=== PATIENT | male | born 1960 | race Caucasian/White ===

== ENCOUNTER 2023-08-21 10:30 | Emergency (ER) | payer OTHER ==
[~2023-08-21] VITALS: Ht 182.9 cm; Wt 131.5 kg
[2023-08-21 11:19] LABS: BASOPHILS # (AUTO) 0.03 K/uL (0.00-0.20); BASOPHILS % (AUTO) 0.6 % (0.0-5.0); EOSINOPHILS # (AUTO) 0.24 K/uL (0.00-0.70); EOSINOPHILS % (AUTO) 4.5 % (0.0-8.0); HEMATOCRIT 44.8 % (42-54); IMMATURE GRANULOCYTE ABSOLUTE 0.02 K/uL (0-1); LYMPHOCYTES # (AUTO) 0.8 K/uL (1.0-4.8); LYMPHOCYTES % (AUTO) 14.2 % (21.0-51.0); MEAN CORPUSCULAR HEMOGLOBIN 31.6 pg (27.0-33.0); MEAN CORPUSCULAR HGB CONC 33.3 g/dL (32.0-36.0); MEAN CORPUSCULAR VOLUME 95.1 fL (79-99); MONOCYTES # (AUTO) 0.6 K/uL (0.1-1.0); NEUTROPHILS # (AUTO) 3.7 K/uL (1.8-7.7); NEUTROPHILS % (AUTO) 69.3 % (40.0-77.0); PLATELET COUNT (AUTO) 268 K/uL (130-400); RED BLOOD CELL COUNT(AUTO) 4.71 MIL/uL (4.50-6.20); RED CELL DISTRIBUTION WIDTH 13.8 % (11.0-15.5); WHITE BLOOD COUNT (AUTO) 5.4 K/uL (4.8-10.8)
[2023-08-21 11:28] LABS: CREATININE 0.8 mg/dL (0.5-1.5); POTASSIUM 4.3 mmol/L (3.5-5.1)
[2023-08-21] MEDS ORDERED: ACETAMINOPHEN 500 MG TABLET PO ONE (11:30)
[2023-08-21 11:33] LABS: ALBUMIN 3.2 g/dL (3.5-5.0); BILIRUBIN,TOTAL 0.4 mg/dL (0.2-1.0); TOTAL PROTEIN, SERUM 6.5 g/dL (6.0-8.3)
[2023-08-21 13:08] VITALS: BP 164/93; PULSE 70; RESP 19; O2SAT 98
== END 2023-08-21 13:33 | disposition home or self-care (01) ==
LOC: EDH 10:30
DX: E66.01 Morbid (severe) obesity due to excess calories (principal); R53.1 Weakness; I10 Essential (primary) hypertension; Z68.39 Body mass index [BMI] 39.0-39.9, adult
CPT/HCPCS: 36415; 71045; 73030; 80053; 82550; 83880; 85025

== ENCOUNTER 2023-08-23 13:03 | Inpatient (IN) | payer OTHER ==
[~2023-08-23] VITALS: Ht 188 cm; Wt 128.4 kg
[2023-08-23] MEDS: GUAIFENESIN-DM 200/20 MG 10 ML PO ONE (19:31)
[2023-08-23 19:39] LABS: BASOPHILS # (AUTO) 0.04 K/uL (0.00-0.20); BASOPHILS % (AUTO) 0.5 % (0.0-5.0); EOSINOPHILS # (AUTO) 0.22 K/uL (0.00-0.70); EOSINOPHILS % (AUTO) 2.7 % (0.0-8.0); HEMATOCRIT 49.5 % (42-54); IMMATURE GRANULOCYTE ABSOLUTE 0.02 K/uL (0-1); LYMPHOCYTES # (AUTO) 0.8 K/uL (1.0-4.8); LYMPHOCYTES % (AUTO) 10.2 % (21.0-51.0); MEAN CORPUSCULAR HEMOGLOBIN 31.6 pg (27.0-33.0); MEAN CORPUSCULAR HGB CONC 32.9 g/dL (32.0-36.0); MEAN CORPUSCULAR VOLUME 95.9 fL (79-99); MONOCYTES # (AUTO) 0.7 K/uL (0.1-1.0); MONOCYTES % (AUTO) 8.6 % (3.0-13.0); NEUTROPHILS # (AUTO) 6.3 K/uL (1.8-7.7); NEUTROPHILS % (AUTO) 77.8 % (40.0-77.0); PLATELET COUNT (AUTO) 290 K/uL (130-400); RED BLOOD CELL COUNT(AUTO) 5.16 MIL/uL (4.50-6.20); WHITE BLOOD COUNT (AUTO) 8.1 K/uL (4.8-10.8)
[2023-08-23 20:39] LABS: INFLUENZA TYPE A Negative For Type A (NEGATIVE); INFLUENZA TYPE B Negative For Type B (NEGATIVE); SARS-CoV-2, RNA, NAAT NEGATIVE SARS CoV-2 (NEGATIVE)
[2023-08-23 20:47] LABS: CREATININE 0.8 mg/dL (0.5-1.5); POTASSIUM 4.6 mmol/L (3.5-5.1)
[2023-08-23 20:52] LABS: ALBUMIN 3.4 g/dL (3.5-5.0); BILIRUBIN,TOTAL 0.6 mg/dL (0.2-1.0)
[2023-08-23] MEDS: ACETAMINOPHEN 650 MG/20.3 ML UDCUP PO ONE (21:49)
[2023-08-23] MEDS ORDERED: IOHEXOL-350 50ML VIAL IV ONE (22:03)
[2023-08-23] MEDS ORDERED: IOHEXOL 350 MG/ML 100ML INFUS..BTL IV ONE (22:03)
[2023-08-24] MEDS ORDERED: GUAIFENESIN-DM 200/20 MG 10 ML PO PRN (02:00)
[2023-08-24] MEDS ORDERED: ONDANSETRON 4MG INJ IV PRN (02:00)
[2023-08-24] MEDS ORDERED: ACETAMINOPHEN 325 MG TAB PO PRN (02:00)
[2023-08-24] MEDS ORDERED: POTASSIUM CHLORIDE 20MEQ/100ML 100 ML IV PRN (02:30)
[2023-08-24] MEDS ORDERED: KCL 20 MEQ ERTAB PO PRN (02:30)
[2023-08-24] MEDS ORDERED: POTASSIUM CHLORIDE 10% ELIXIR 20 MEQ/15 ML UDCUP PO PRN (02:30)
[2023-08-24] MEDS ORDERED: MAGNESIUM 2GM PREMIX 50ML 50 ML IV PRN (02:30)
[2023-08-24] MEDS: CEFTRIAXONE 1G VIAL IVPB SCH (02:38)
[2023-08-24 05:11] LABS: ADD UA MICROSCOPIC YES; APPEARANCE,URINE CLEAR (CLEAR); BILIRUBIN,URINE NEGATIVE (NEGATIVE); COLOR,URINE LIGHT-YELLOW (YELLOW); GLUCOSE, URINE (UA) NEGATIVE (NEGATIVE); KETONES,URINE 10 mg/dL (NEGATIVE); LEUKOCYTE ESTERASE ,URINE NEGATIVE Leu/uL (NEGATIVE); NITRATE,URINE NEGATIVE (NEGATIVE); OCCULT BLOOD,URINE NEGATIVE (NEGATIVE); PROTEIN,URINE 20 mg/dL (NEGATIVE); UROBILINOGEN,URINE 0.2 mg/dL (0.2-1.0)
[2023-08-24 05:13] LABS: BACTERIA,URINE RARE /HPF (None Seen); MUCUS,URINE RARE LPF (None Seen); RBC,URINE 0-1 /HPF (0-1); SQUAMOUS EPITHELIAL CELL,UR FEW /HPF (0-2); WBC,URINE 0-1 /HPF (0-1)
[2023-08-24 07:42] LABS: BASOPHILS # (AUTO) 0.03 K/uL (0.00-0.20); BASOPHILS % (AUTO) 0.5 % (0.0-5.0); EOSINOPHILS # (AUTO) 0.21 K/uL (0.00-0.70); EOSINOPHILS % (AUTO) 3.8 % (0.0-8.0); IMMATURE GRANULOCYTE ABSOLUTE 0.01 K/uL (0-1); LYMPHOCYTES # (AUTO) 0.9 K/uL (1.0-4.8); LYMPHOCYTES % (AUTO) 15.6 % (21.0-51.0); MEAN CORPUSCULAR HEMOGLOBIN 31.4 pg (27.0-33.0); MEAN CORPUSCULAR HGB CONC 33.5 g/dL (32.0-36.0); MEAN CORPUSCULAR VOLUME 93.8 fL (79-99); MONOCYTES # (AUTO) 0.6 K/uL (0.1-1.0); MONOCYTES % (AUTO) 10.5 % (3.0-13.0); NEUTROPHILS # (AUTO) 3.8 K/uL (1.8-7.7); NEUTROPHILS % (AUTO) 69.4 % (40.0-77.0); PLATELET COUNT (AUTO) 277 K/uL (130-400); RED BLOOD CELL COUNT(AUTO) 5.12 MIL/uL (4.50-6.20); RED CELL DISTRIBUTION WIDTH 14.2 % (11.0-15.5); WHITE BLOOD COUNT (AUTO) 5.5 K/uL (4.8-10.8)
[2023-08-24 07:50] LABS: HEMOGLOBIN A1C 5.5 % (4.0-6.0)
[2023-08-24 08:03] LABS: BILIRUBIN,TOTAL 0.5 mg/dL (0.2-1.0); CREATININE 0.8 mg/dL (0.5-1.5); POTASSIUM 4.1 mmol/L (3.5-5.1); THYROID STIMULATING HORMONE 1.49 uIU/mL (0.36-3.74); TOTAL PROTEIN, SERUM 6.4 g/dL (6.0-8.3)
[2023-08-24] MEDS: FAMOTIDINE 20MG VIAL IV SCH (11:13)
[2023-08-24] MEDS: ENOXAPARIN SODIUM 30 MG/0.3 ML SQ SCH (11:13)
[2023-08-24] MEDS: LISINOPRIL 20 MG TABLET PO ONE (12:53)
[2023-08-24] MEDS ORDERED: METOPROLOL TARTRATE 1 MG/ML 5ML VIAL IV PRN (13:00)
[2023-08-24 18:50] VITALS: BP 106/49; PULSE 75; RESP 20
[2023-08-24 20:50] VITALS: O2SAT 95
[2023-08-24] MEDS: ACETAMINOPHEN 325 MG TAB PO PRN (21:31)
[2023-08-25] VITALS (8 sets, daily range): BP systolic 112–136; BP diastolic 60–76; PULSE 77–86; RESP 17–20; O2SAT 95
[2023-08-25 05:12] LABS: HEMATOCRIT 42.5 % (42-54); MEAN CORPUSCULAR HEMOGLOBIN 31.7 pg (27.0-33.0); MEAN CORPUSCULAR HGB CONC 33.9 g/dL (32.0-36.0); MEAN CORPUSCULAR VOLUME 93.6 fL (79-99); RED BLOOD CELL COUNT(AUTO) 4.54 MIL/uL (4.50-6.20); RED CELL DISTRIBUTION WIDTH 14.5 % (11.0-15.5); WHITE BLOOD COUNT (AUTO) 6.1 K/uL (4.8-10.8)
[2023-08-25 05:30] LABS: POTASSIUM 3.9 mmol/L (3.5-5.1)
[2023-08-25] MEDS: ATORVASTATIN 40 MG TABLET PO SCH (21:50)
[2023-08-25] MEDS: CLOPIDOGREL 300MG TAB PO SCH (21:50)
[2023-08-25] MEDS: BACITRACIN 1 EACH PACKET TP SCH (21:51)
[2023-08-25] MEDS: HYDROCODONE/ACETAMINOPHEN 5/325 MG TAB PO PRN (22:22)
[2023-08-26] VITALS (9 sets, daily range): BP systolic 107–162; BP diastolic 56–95; PULSE 60–85; RESP 18–20; O2SAT 94–96
[2023-08-26] MEDS ORDERED: IOHEXOL-350 75 ML VIAL IV ONE (08:52)
[2023-08-26] MEDS ORDERED: CLOPIDOGREL 75MG TAB PO SCH (09:00)
[2023-08-26] MEDS ORDERED: ASPIRIN 81 MG EC TAB PO SCH (09:00)
[2023-08-26] MEDS: ASPIRIN 81 MG EC TAB PO SCH (11:02)
[2023-08-26] MEDS: CLOPIDOGREL 75MG TAB PO SCH (11:03)
[2023-08-26 11:23] LABS: HEMATOCRIT 44.1 % (42-54); MEAN CORPUSCULAR HEMOGLOBIN 31.5 pg (27.0-33.0); MEAN CORPUSCULAR HGB CONC 32.9 g/dL (32.0-36.0); MEAN CORPUSCULAR VOLUME 95.9 fL (79-99); RED BLOOD CELL COUNT(AUTO) 4.6 MIL/uL (4.50-6.20); RED CELL DISTRIBUTION WIDTH 14.4 % (11.0-15.5); WHITE BLOOD COUNT (AUTO) 5.2 K/uL (4.8-10.8)
[2023-08-26 11:24] LABS: CREATININE 0.8 mg/dL (0.5-1.5); POTASSIUM 4.1 mmol/L (3.5-5.1)
[2023-08-26 11:29] LABS: ALBUMIN 2.7 g/dL (3.5-5.0); BILIRUBIN,TOTAL 0.4 mg/dL (0.2-1.0)
[2023-08-26] MEDS: LISINOPRIL 20 MG TABLET PO ONE (14:19)
[2023-08-26] MEDS ORDERED: METOPROLOL TARTRATE 1 MG/ML 5ML VIAL IV PRN (19:00)
[2023-08-26] MEDS: ACETAMINOPHEN 500 MG TABLET PO PRN (21:14)
[2023-08-27] VITALS (7 sets, daily range): BP systolic 77–144; BP diastolic 64–91; PULSE 65–81; RESP 17–20; O2SAT 93–98
[2023-08-27 04:53] LABS: HEMATOCRIT 41.5 % (42-54); MEAN CORPUSCULAR HEMOGLOBIN 31.6 pg (27.0-33.0); MEAN CORPUSCULAR HGB CONC 32.8 g/dL (32.0-36.0); MEAN CORPUSCULAR VOLUME 96.5 fL (79-99); RED BLOOD CELL COUNT(AUTO) 4.3 MIL/uL (4.50-6.20); RED CELL DISTRIBUTION WIDTH 14.2 % (11.0-15.5); WHITE BLOOD COUNT (AUTO) 4.8 K/uL (4.8-10.8)
[2023-08-27 05:30] LABS: ALBUMIN 2.5 g/dL (3.5-5.0); BILIRUBIN,TOTAL 0.3 mg/dL (0.2-1.0); CREATININE 0.8 mg/dL (0.5-1.5); TOTAL PROTEIN, SERUM 5.6 g/dL (6.0-8.3)
[2023-08-27] MEDS: LISINOPRIL 20 MG TABLET PO SCH (09:00)
[2023-08-28] VITALS (9 sets, daily range): BP systolic 110–157; BP diastolic 64–86; PULSE 56–85; RESP 18–20; TEMP 98.2; O2SAT 96–98
[2023-08-28 04:45] LABS: HEMATOCRIT 42.5 % (42-54); MEAN CORPUSCULAR HEMOGLOBIN 31.7 pg (27.0-33.0); MEAN CORPUSCULAR HGB CONC 32.9 g/dL (32.0-36.0); MEAN CORPUSCULAR VOLUME 96.2 fL (79-99); RED BLOOD CELL COUNT(AUTO) 4.42 MIL/uL (4.50-6.20); RED CELL DISTRIBUTION WIDTH 13.9 % (11.0-15.5); WHITE BLOOD COUNT (AUTO) 5.3 K/uL (4.8-10.8)
[2023-08-28 05:22] LABS: ALBUMIN 2.8 g/dL (3.5-5.0); BILIRUBIN,TOTAL 0.3 mg/dL (0.2-1.0); CREATININE 0.7 mg/dL (0.5-1.5); POTASSIUM 4.1 mmol/L (3.5-5.1)
[2023-08-28] MEDS: BACITRACIN 1 EACH PACKET TP SCH (20:25)
[2023-08-29] VITALS (7 sets, daily range): BP systolic 104–153; BP diastolic 60–80; PULSE 61–78; RESP 18–20; O2SAT 95–96
[2023-08-29 04:52] LABS: HEMATOCRIT 41.7 % (42-54); MEAN CORPUSCULAR HEMOGLOBIN 31.5 pg (27.0-33.0); MEAN CORPUSCULAR HGB CONC 33.6 g/dL (32.0-36.0); MEAN CORPUSCULAR VOLUME 93.9 fL (79-99); RED BLOOD CELL COUNT(AUTO) 4.44 MIL/uL (4.50-6.20); RED CELL DISTRIBUTION WIDTH 13.9 % (11.0-15.5); WHITE BLOOD COUNT (AUTO) 5.7 K/uL (4.8-10.8)
[2023-08-29 05:09] LABS: ALBUMIN 2.7 g/dL (3.5-5.0); BILIRUBIN,TOTAL 0.3 mg/dL (0.2-1.0); CREATININE 0.8 mg/dL (0.5-1.5)
== END 2023-08-29 23:15 | DRG 68 ==
LOC: EDH 13:03 → EEVIPCON 13:03 → EDHIP 08-24 01:58 → 4DH 08-24 18:50
PROVIDERS: ADMIT Internal Medicine; ATTEND Internal Medicine
DX: I65.23 Occlusion and stenosis of bilateral carotid arteries (principal); N39.0 Urinary tract infection, site not specified; S80.211A Abrasion, right knee, initial encounter; S80.212A Abrasion, left knee, initial encounter; E66.9 Obesity, unspecified; B96.20 Unspecified Escherichia coli [E. coli] as the cause of diseases classified elsewhere; I70.223 Atherosclerosis of native arteries of extremities with rest pain, bilateral legs; R29.6 Repeated falls; E78.5 Hyperlipidemia, unspecified; G47.30 Sleep apnea, unspecified; G89.29 Other chronic pain; I10 Essential (primary) hypertension; I49.3 Ventricular premature depolarization; W06.XXXA Fall from bed, initial encounter; Y93.89 Activity, other specified; Y99.8 Other external cause status; Z68.37 Body mass index [BMI] 37.0-37.9, adult; Y92.009 Unspecified place in unspecified non-institutional (private) residence as the place of occurrence of the external cause; Z63.4 Disappearance and death of family member
CPT/HCPCS: 36415; 70450; 70498; 71045; 73030; 74230; 75635; 80048; 80053; 80061; 81001; 82550; 83036; 83735; 83880; 84443; 84484; 85025; 85027; 87635; 87804; 92610; 92611; 93005; 93306; 93880; 93925; 99291; G0378; J0696; J1650; J3490; Q9967

== ENCOUNTER 2023-09-08 19:35 | Emergency (ER) | payer OTHER ==
[~2023-09-08] VITALS: Ht 188 cm; Wt 127.0 kg
[2023-09-08 21:11] LABS: BASOPHILS # (AUTO) 0.04 K/uL (0.00-0.20); BASOPHILS % (AUTO) 0.5 % (0.0-5.0); EOSINOPHILS # (AUTO) 0.46 K/uL (0.00-0.70); EOSINOPHILS % (AUTO) 5.9 % (0.0-8.0); HEMATOCRIT 46.1 % (42-54); IMMATURE GRANULOCYTE ABSOLUTE 0.02 K/uL (0-1); LYMPHOCYTES # (AUTO) 0.7 K/uL (1.0-4.8); LYMPHOCYTES % (AUTO) 9.2 % (21.0-51.0); MEAN CORPUSCULAR HEMOGLOBIN 31.8 pg (27.0-33.0); MEAN CORPUSCULAR HGB CONC 33.8 g/dL (32.0-36.0); MEAN CORPUSCULAR VOLUME 94.1 fL (79-99); MONOCYTES # (AUTO) 0.6 K/uL (0.1-1.0); MONOCYTES % (AUTO) 7.9 % (3.0-13.0); NEUTROPHILS % (AUTO) 76.2 % (40.0-77.0); PLATELET COUNT (AUTO) 235 K/uL (130-400); RED CELL DISTRIBUTION WIDTH 13.5 % (11.0-15.5); WHITE BLOOD COUNT (AUTO) 7.8 K/uL (4.8-10.8)
[2023-09-08 21:20] LABS: POTASSIUM 4.1 mmol/L (3.5-5.1)
[2023-09-08 21:28] LABS: ALBUMIN 3.4 g/dL (3.5-5.0); BILIRUBIN,TOTAL 0.3 mg/dL (0.2-1.0); TOTAL PROTEIN, SERUM 7.1 g/dL (6.0-8.3)
[2023-09-08] MEDS: ACETAMINOPHEN 500 MG TABLET PO ONE (23:02)
[2023-09-09 00:18] VITALS: BP 153/79; PULSE 79; RESP 17; O2SAT 98
== END 2023-09-09 00:46 | disposition home or self-care (01) ==
LOC: EDH 19:35
DX: I65.29 Occlusion and stenosis of unspecified carotid artery (principal); H53.2 Diplopia; I10 Essential (primary) hypertension
CPT/HCPCS: 36415; 70551; 71045; 80053; 84484; 85025; 93005